=== PATIENT | male | born 1995 | race Caucasian/White ===

== ENCOUNTER 2016-12-22 17:47 | Emergency (ER) | payer OTHER ==
--- NOTE | 2016-12-22 18:11 | ERPHSYRPT ---
- History of Present Illness Time Seen by Provider: 12/22/16 18:03 Source: patient Physician History: CC: cough Hx: 21 y/o patient who smokes and works at [employer] in [facility]. He has 2 week hx of cough. No fever or chills. Not short of breath. No hx of asthma. Timing/Duration: week(s) (2) - Review of Systems Constitutional: Malaise, No Fever, No Chills Eyes: No Symptoms Ears, Nose, & Throat: No Symptoms Respiratory: Cough, No Dyspnea Cardiac: No Chest Pain Abdominal/Gastrointestinal: No Abdominal Pain, No Vomiting Skin: No Rash Neurological: No Headache All Other Systems: Reviewed and Negative - Past Medical History Pertinent Past Medical History: Yes Other Medical History: mental health. smoker - Social History Smoking Status: Current every day smoker Patient Lives Alone: No - Nursing Vital Signs Nursing Vital Signs: Initial Vital Signs Temperature 98.1 F 12/22/16 17:57 Pulse Rate 84 12/22/16 17:57 Respiratory Rate 18 12/22/16 17:57 Blood Pressure 147/84 12/22/16 17:57 O2 Sat by Pulse Oximetry 99 12/22/16 17:57 Pain Scale Pain Intensity 0 - Physical Exam General Appearance: alert Eye Exam: PERRL/EOMI Ears, Nose, Throat Exam: normal ENT inspection, moist mucous membranes Neck Exam: normal inspection, non-tender, supple Respiratory Exam: normal breath sounds, lungs clear, No respiratory distress Cardiovascular Exam: regular rate/rhythm Gastrointestinal/Abdomen Exam: soft, No tenderness, No distention Back Exam: normal inspection, normal range of motion Extremity Exam: normal inspection, normal range of motion Neurologic Exam: alert, oriented x 3, cooperative Skin Exam: warm, dry, No rash SpO2 Interpretation: normal SpO2: 99 Oxygen Delivery: Room Air - Course Nursing assessment & vital signs reviewed: Yes - Progress Progress Note: 12/22/16 18:09 Advised smoking cessation. Rx docy and alb. Work slip given. Counseled pt/family regarding: diagnosis, need for follow-up, smoking cessation - Departure Time of Disposition: 18:09 Departure Disposition: Home Clinical Impression: Acute bronchitis, Smoker Condition: Stable Critical Care Time: No Referrals: Ana Sommer [Primary Care Provider] - Instructions: Cough -- Adult, Quit Smoking, Bronchitis Additional Instructions: Off work today. Rx albuterol MDI. Rx doxycycline. Prescriptions: Albuterol Sulfate [Albuterol Sulfate Hfa] 2 puff IH Q4-6HPRN PRN #1 [id number] PRN Reason: cough or wheeze Doxycycline Hyclate 100 mg [Vibramycin 100 MG] 100 mg PO BID #20 tab
[2016-12-22 18:45] VITALS: BP 126/79; PULSE 77; O2SAT 97
== END 2016-12-22 18:27 | disposition home or self-care (01) ==
LOC: ED 17:47
DX: J20.9 Acute bronchitis, unspecified (principal); F17.200 Nicotine dependence, unspecified, uncomplicated